=== PATIENT | female | born 1955 | race African-American/Black ===

== ENCOUNTER 2021-09-17 09:57 | Outpatient (CLI) | payer MEDICARE, MEDICAID | END 2021-09-17 09:58 | disposition home or self-care (01) | LOC: CSHWCC 09:57 | PROVIDERS: ATTEND Nurse Practitioner Family | DX: I10 Essential (primary) hypertension (principal); K94.09 Other complications of colostomy; Z85.43 Personal history of malignant neoplasm of ovary | CPT/HCPCS: 99212; G0463 ==